=== PATIENT | female | born 1990 | race Caucasian/White ===

== ENCOUNTER 2016-08-30 23:48 | Emergency (ER) | payer MEDICAID ==
[~2016-08-30] VITALS: Ht 165.1 cm; Wt 127.0 kg
[~2016-08-30 23:48] MED LIST: NO MED
[2016-08-30 23:49] VITALS: BP 148/88
--- NOTE | 2016-08-30 23:59 | NUR ---
PT TAKEN TO BED 8
--- NOTE | 2016-08-31 00:05 | NUR ---
26Y/F PATIENT PRESENTS TO ED WITH C/O FLU LIKE SYMPTOM X 1 WK . PT STATES STARTED COUGHING 1 WK AGO, FEVER, SORE THROAT, ERAS PAIN AND HEADACHE. DENIES N/V/D; SKIN IS PINK/WARM/DRY; AAOX4 WITH EVEN AND STEADY GAIT; LUNGS CLEAR BL; HR EVEN AND REGULAR; PT DENIES ANY FEVER, CP, SOB, OR COUGH AT THIS TIME; PATIENT STATES PAIN OF 8/10 AT THIS TIME; VSS; PATIENT POSITIONED FOR COMFORT; HOB ELEVATED; BEDRAILS UP X2; BED DOWN. ER MD MADE AWARE OF PT STATUS.
--- NOTE | 2016-08-31 00:51 | NUR ---
Dr. Henderson evaluating patient at bedside.
--- NOTE | 2016-08-31 01:34 | NUR ---
Patient discharged with v/s stable. Written and verbal after care instructions given and explained. Patient alert, oriented and verbalized understanding of instructions. Ambulatory with steady gait. All questions addressed prior to discharge. ID band removed. Patient advised to follow up with PMD. Rx of GENTEX LA 650MG-23.75 MG EXTENDED-RELEASE, CODEINE/PROMETHAZINE 10MG-5.25/5ML given. Patient educated on indication of medication including possible reaction and side effects. Opportunity to ask questions provided and answered.
[2016-08-31 01:35] VITALS: BP 140/85
== END 2016-08-31 01:34 | disposition home or self-care (01) ==
LOC: MED 23:48
DX: J06.9 Acute upper respiratory infection, unspecified (principal); I10 Essential (primary) hypertension

== ENCOUNTER 2016-11-12 13:08 | Emergency (ER) | payer MEDICAID, OTHER ==
[~2016-11-12] VITALS: Ht 167.6 cm; Wt 136.1 kg
[2016-11-12 13:51] VITALS: BP 146/98
--- NOTE | 2016-11-12 18:38 | NUR ---
PT AMBULATED TO BED 5.
--- NOTE | 2016-11-12 18:40 | NUR ---
26F BIB SELF C/O HEADACHE X 5 DAYS; PT DENIES TRAUMA OR INJURY TO HEAD; DENIES LOC, BLURRY VISION, OR VISION CHANGES AT THIS TIME; PT C/O PRESSURE "ALL OVER" HEAD, NON-RADIATING, 9/10 X 5 DAYS; PT SEEN BY [facility]RGENT [facility] TODAY, TXED FOR UTI, BUT INSTRUCTED TO COME TO ER FOR HEADACHE. A&OX4, PERRL, BL LUNG SOUNDS CLEAR, RR EVEN/UNLABORED, SKIN IS WARM/DRY/INTACT AT THIS TIME; PT C/O NAUSEA X 5 DAYS, BUT DENIES VOMITING/DIARRHEA AT THIS TIME; ABDOMEN SOFT, ROUND, NON-TENDER, ACTIVE BOWEL SOUNDS X 4 QUADRANTS; STEADY GAIT; PT RESTING IN BED W/ HOB ELEVATED AND IN LOWEST POSITION; POSITIONED FOR COMFORT; ER MD MADE AWARE OF STATUS. WILL CONTINUE TO MONITOR.
--- NOTE | 2016-11-12 18:48 | NUR ---
ER MD DR. MACKENZIE EVALUATING PT AT BEDSIDE.
[2016-11-12] MEDS ORDERED: NACL 0.9% 1,000 ML IV ONE (18:55)
[2016-11-12] MEDS ORDERED: METOCLOPRAMIDE 10 MG/2 ML INJ VIAL IVP ONE (18:55)
--- NOTE | 2016-11-12 19:18 | NUR ---
Pt report given to TAYLOR PURI. Transfer of care at this time.
--- NOTE | 2016-11-12 19:50 | NUR ---
PT TAKEN TO CT
--- NOTE | 2016-11-12 20:01 | NUR ---
PT RETURN FROM CT
--- NOTE | 2016-11-12 20:40 | NUR ---
Dr. Rutledge evaluating patient at bedside.
--- NOTE | 2016-11-12 20:44 | NUR ---
Patient appears to be resting comfortably in bed. Vital Signs within normal limits. Respirations even and unlabored. FAMILY AT BEDSIDE AT THIS TIME
[2016-11-12 20:58] VITALS: BP 130/78
--- NOTE | 2016-11-12 20:59 | NUR ---
IV removed, catheter intact and site benign. Applied folded 4x4 gauze and tape to stop bleeding. Patient discharged with v/s stable. Written and verbal after care instructions given and explained. Patient alert, oriented and verbalized understanding of instructions. Ambulatory with steady gait. All questions addressed prior to discharge. ID band removed. Patient advised to follow up with PMD. Rx of TYLENOL WITH CODEINE AND PEPCID given. Patient educated on indication of medication including possible reaction and side effects. Opportunity to ask questions provided and answered. FAMILY AT BEDSIDE AT THIS TIME
== END 2016-11-12 20:59 | disposition home or self-care (01) ==
LOC: MED 13:08
DX: R51 Headache (principal); R10.9 Unspecified abdominal pain; I10 Essential (primary) hypertension
CPT/HCPCS: 36415; 70450; 80053; 81001; 81025; 83605; 85025; 96361; 96374; 99285; J2765; J7030

== ENCOUNTER 2016-11-13 19:17 | Emergency (ER) | payer OTHER ==
[~2016-11-13] VITALS: Ht 165.1 cm; Wt 136.1 kg
[2016-11-13 19:34] VITALS: BP 160/96
--- NOTE | 2016-11-13 22:41 | NUR ---
PT TAKEN TO BED 4
--- NOTE | 2016-11-13 22:51 | NUR ---
PT PRESENTS TO ED WITH C/O HEADACHE SINCE LAST SATURDAY. STATED SHE CAME HERE YESTERDAY WITH SAME COMPLAINT, PAIN SCALE 10/10, PRESSURE. HX: HTN. BREATHING EVEN AND UNLABORED. ERMD AWARE
--- NOTE | 2016-11-13 22:54 | NUR ---
Dr. Wray evaluating patient at bedside.
--- NOTE | 2016-11-13 22:56 | NUR ---
Sharan naidu in ED - 11/14/16 at [address] MACKENZIE AT BEDSIDE EVALUATING PT.
[2016-11-13] MEDS ORDERED: METOCLOPRAMIDE 10 MG/2 ML INJ VIAL IVP ONE (23:00)
[2016-11-13 23:28] LABS: HEMOGLOBIN 13.1 g/dL (12.0-16.0); MEAN CORPUSCULAR HEMOGLOBIN 29 pg (27-31); MEAN CORPUSCULAR HGB CONC 33 g/dL (33-37); MEAN CORPUSCULAR VOLUME 86 fL (80-94); PLATELET COUNT (AUTO) 260 K/uL (140-450); RED BLOOD CELL COUNT(AUTO) 4.54 MIL/uL (4.20-5.40); RED CELL DISTRIBUTION WIDTH 14.1 % (11.6-13.7); WHITE BLOOD COUNT (AUTO) 6.8 K/uL (4.8-10.8)
[2016-11-13 23:47] LABS: APPEARANCE,URINE CLEAR (CLEAR); BILIRUBIN,URINE NEGATIVE (NEGATIVE); BLOOD, URINE 2+ (NEGATIVE); COLOR,URINE YELLOW (YELLOW); LEUKOCYTE ESTERASE ,URINE TRACE (NEGATIVE); NITRITE, URINE NEGATIVE (NEGATIVE); PH,URINE 5.5 (5.0-9.0); PROTEIN,URINE NEGATIVE (NEGATIVE); UGLUCOSE NEGATIVE (NEGATIVE); UROBILINOGEN,URINE 0.2 EU/dL (0.2 - 1)
[2016-11-13 23:49] LABS: ALBUMIN 3.4 g/dL (3.4-5.0); ANION GAP 11.4 (8-16); CALCIUM 8.3 mg/dL (8.5-10.1); CARBON DIOXIDE 28.9 mmol/L (21-32); CREATININE 0.9 mg/dL (0.6-1.3); POTASSIUM 3.3 mmol/L (3.5-5.1); TOTAL BILIRUBIN 0.4 mg/dL (0.0-1.0); TOTAL PROTEIN, SERUM 7.1 g/dL (6.4-8.2)
[2016-11-13 23:56] LABS: NEUTROPHILS % (MANUAL) 13 (43-65)
[2016-11-13 23:57] LABS: BAND % (MANUAL) 14 % (0-8); LYMPHOCYTES % (MANUAL) 68 % (20-46); MONOCYTES % (MANUAL) 5 % (5-12)
[2016-11-14 00:22] LABS: BACTERIA,URINE FEW /HPF (None Seen); MUCUS,URINE 3+ /LPF (None Seen); RBC,URINE 0-5 (RARE) /HPF (0-5); SQUAMOUS EPITHELIAL CELL,UR 0-3 (FEW) /LPF (0-3 (FEW)); WBC,URINE 0-5 (RARE) /HPF (0-5)
--- NOTE | 2016-11-14 01:30 | NUR ---
DR. MACKENZIE AT BEDSIDE REEVALUATING PT
[2016-11-14] MEDS ORDERED: KETOROLAC 30 MG/ML VIAL IM ONE (01:35)
--- NOTE | 2016-11-14 02:10 | NUR ---
IV removed, catheter intact and site benign. Applied folded 4x4 gauze and tape to stop bleeding.
[2016-11-14 02:17] VITALS: BP 134/83
--- NOTE | 2016-11-14 02:17 | NUR ---
Patient discharged with v/s stable. Written and verbal after care instructions given and explained. Patient alert, oriented and verbalized understanding of instructions. Ambulatory with steady gait. All questions addressed prior to discharge. ID band removed. Patient advised to follow up with PMD. Rx of MACRODANTIN 100MG CAPSULE 1 CAP, 2 TIMES A DAY BY MOUTH, SUMATRIPTAN SUCCINATE 50MG TABLET 1 TAB ORALLY AT ONSET OF HEADACHE IF NO RELIEF AFTER 2 HOURS THE DOSE MAY BE REPEATED ONE TIME given. Patient educated on indication of medication including possible reaction and side effects. Opportunity to ask questions provided and answered.
== END 2016-11-14 02:17 | disposition home or self-care (01) ==
LOC: MED 19:17
DX: G43.909 Migraine, unspecified, not intractable, without status migrainosus (principal); N39.0 Urinary tract infection, site not specified; I10 Essential (primary) hypertension
CPT/HCPCS: 36415; 80053; 81001; 81025; 85025; 96372; 96374; 99284; J1885; J2765

== ENCOUNTER 2016-11-14 23:38 | Emergency (ER) | payer MEDICAID, OTHER ==
[~2016-11-14] VITALS: Ht 162.6 cm; Wt 136.1 kg
[2016-11-14 23:43] VITALS: BP 148/90
--- NOTE | 2016-11-15 02:45 | NUR ---
PATIENT LEFT WITHOUT BEING SEEN BY DR. Liu. NO FURTHER CARE PROVIDED FOR PATIENT.
== END 2016-11-15 02:45 | disposition left against medical advice (07) ==
LOC: MED 23:38
DX: R07.89 Other chest pain (principal); Z53.21 Procedure and treatment not carried out due to patient leaving prior to being seen by health care provider

== ENCOUNTER 2017-07-10 08:57 | Emergency (ER) | payer MEDICAID, OTHER ==
[~2017-07-10] VITALS: Ht 162.6 cm; Wt 137.4 kg
--- NOTE | 2017-07-10 09:08 | NUR ---
patient to er bed 1
[2017-07-10 09:09] VITALS: BP 162/114
--- NOTE | 2017-07-10 09:12 | NUR ---
PT PRESENTS TO ER FOR EVALUATION OF BACK PAIN EXTENDING FROM NECK TO LOW BACK AND RADIATING TO RIGHT SIDE OF BODY X10 DAYS. HX HTN. DENIES N/V/D; SKIN IS PINK/WARM/DRY; AAOX4 WITH EVEN AND STEADY GAIT; LUNGS CLEAR BL; HR EVEN AND REGULAR; PT DENIES ANY FEVER, CP, SOB, OR COUGH AT THIS TIME; PATIENT STATES PAIN OF 9/10 AT THIS TIME; VSS; PATIENT POSITIONED FOR COMFORT; HOB ELEVATED; BEDRAILS UP X2; BED DOWN. ER MD MADE AWARE OF PT STATUS.
--- NOTE | 2017-07-10 09:17 | NUR ---
DR LICEA EVALUATING AAO PT AT BEDSIDE
[2017-07-10] MEDS ORDERED: LIDOCAINE 1% ***ER ONLY *** 10 MG/ML VIAL INJ ONE (09:25)
[2017-07-10 10:43] VITALS: BP 148/91
== END 2017-07-10 10:43 | disposition home or self-care (01) ==
LOC: MED 08:57
DX: M62.830 Muscle spasm of back (principal); M25.511 Pain in right shoulder; G89.29 Other chronic pain; I10 Essential (primary) hypertension; Z87.891 Personal history of nicotine dependence
CPT/HCPCS: 20552; 99284; J2001

== ENCOUNTER 2017-10-18 13:30 | Emergency (ER) | payer OTHER ==
[~2017-10-18] VITALS: Ht 165.1 cm; Wt 102.1 kg
--- NOTE | 2017-10-18 13:39 | NUR ---
Patient BIBA to bed 4.
[2017-10-18 13:42] VITALS: BP 195/108
--- NOTE | 2017-10-18 14:00 | NUR ---
PATIENT BIB [facility] WITH C/O WEAK/DIZZY AT WORK TODAY. BS FIELD 137. BP FIELD 190/120. DID NOT TAKE BP MEDS X2 DAYS. CANT RECALL NAME BP MEDS. HX: HTN .AAOX4 WITH EVEN AND STEADY GAIT; LUNGS CLEAR BL; HR EVEN AND REGULAR; ELEVATED BP NOTED, PT DENIES ANY FEVER, CP, SOB, OR COUGH AT THIS TIME; DENIES N/V/D; SKIN IS PINK/WARM/DRY; PATIENT STATES HEADACHE 8/10 AT THIS TIME; VSS; PATIENT POSITIONED FOR COMFORT; HOB ELEVATED; BEDRAILS UP X2; BED DOWN. ER MD MADE AWARE OF PT STATUS.
[2017-10-18 14:19] LABS: BILIRUBIN,URINE NEGATIVE (NEGATIVE); BLOOD, URINE TRACE-I (NEGATIVE); LEUKOCYTE ESTERASE ,URINE NEGATIVE (NEGATIVE); NITRITE, URINE NEGATIVE (NEGATIVE); PH,URINE 5.5 (5.0-9.0); UGLUCOSE NEGATIVE (NEGATIVE)
[2017-10-18 14:20] LABS: APPEARANCE,URINE CLEAR (CLEAR); COLOR,URINE STRAW (YELLOW)
[2017-10-18 14:28] LABS: RBC,URINE 0-5 (RARE) /HPF (0-5); WBC,URINE 0-5 (RARE) /HPF (0-5)
[2017-10-18 14:30] LABS: BASOPHILS # (AUTO) 0.1 K/uL (0.00-0.22); BASOPHILS % (AUTO) 1.2 % (0.0-2.0); EOSINOPHILS # (AUTO) 0.1 K/uL (0-0.4); EOSINOPHILS % (AUTO) 0.7 % (0.0-4.0); HEMATOCRIT 39.7 % (36-48); HEMOGLOBIN 13.3 g/dL (12.0-16.0); LYMPHOCYTES # (AUTO) 3.4 K/uL (2.5-16.5); LYMPHOCYTES % (AUTO) 34.4 % (20.5-51.1); MEAN CORPUSCULAR HEMOGLOBIN 29 pg (27-31); MEAN CORPUSCULAR HGB CONC 33 g/dL (33-37); MEAN CORPUSCULAR VOLUME 87.9 fL (80-94); MONOCYTES # (AUTO) 0.5 K/uL (0.8-1.0); MONOCYTES % (AUTO) 5.6 % (1.7-9.3); NEUTROPHILS # (AUTO) 5.7 K/uL (1.8-7.7); NEUTROPHILS % (AUTO) 58.1 % (42.2-75.2); PLATELET COUNT (AUTO) 380 K/uL (140-450); RED BLOOD CELL COUNT(AUTO) 4.52 MIL/uL (4.20-5.40); RED CELL DISTRIBUTION WIDTH 12.9 % (11.6-13.7); WHITE BLOOD COUNT (AUTO) 9.8 K/uL (4.8-10.8)
[2017-10-18 15:01] LABS: PROTHROMBIN TIME 10.4 secs (10.8-13.4)
[2017-10-18 15:19] LABS: ALBUMIN 3.8 g/dL (3.4-5.0); ANION GAP 13.8 (8-16); CARBON DIOXIDE 25.8 mmol/L (21-32); CREATININE 0.8 mg/dL (0.6-1.3); POTASSIUM 3.6 mmol/L (3.5-5.1); TOTAL BILIRUBIN 0.2 mg/dL (0.0-1.0)
[2017-10-18 16:37] VITALS: BP 145/94
--- NOTE | 2017-10-18 16:37 | NUR ---
Patient discharged with v/s stable. Written and verbal after care instructions given and explained. Patient alert, oriented and verbalized understanding of instructions. Ambulatory with steady gait. All questions addressed prior to discharge. ID band removed. Patient advised to follow up with PMD. Rx of HCTZ given. Patient educated on indication of medication including possible reaction and side effects. Opportunity to ask questions provided and answered.
[2017-10-19] MEDS ORDERED: HYDROCHLOROTHIAZIDE 25 MG TAB PO SCH (09:00)
== END 2017-10-18 16:37 | disposition home or self-care (01) ==
LOC: MED 13:30
DX: R51 Headache (principal); R42 Dizziness and giddiness; I10 Essential (primary) hypertension; F17.200 Nicotine dependence, unspecified, uncomplicated
CPT/HCPCS: 36415; 70450; 80053; 81001; 81025; 83605; 84484; 85025; 85610; 87040; 93005; 99285; J7030

== ENCOUNTER 2020-02-16 21:50 | Emergency (ER) | payer OTHER ==
[~2020-02-16] VITALS: Ht 165.1 cm; Wt 138.3 kg
[2020-02-16 22:09] VITALS: BP 142/92
--- NOTE | 2020-02-16 22:09 | NUR ---
PT TO A/W IN TENT FOR EVALUATION. PT WEARING MASK.
--- NOTE | 2020-02-16 22:53 | NUR ---
PT TAKEN TO BED 5
--- NOTE | 2020-02-16 22:59 | NUR ---
30 YO F BIB SELF FOR C/C OF SINUS PRESSURE IN FACE AND NOSE X1 WEEK. PT STATES SHE WAS HAVING CLEAR MUCOUS RHINORRHEA EARLIER IN THE WEEK BUT NOW NOTHING COMES OUT WHEN SHE TRIES TO BLOW HER NOSE. PT STATES SHE HAS TAKEN OTC COUGH/MUCOUS DECONGESTION AND NASAL SPRAYS WITHOUT RELIEF OF SYMPTIMS. PT DENIES LIU, FEVER, COUGH, CHILLS, SOB, N/V/D, TRAVEL. BED LOCKED AND IN LOWEST POSITION. SIDE RAILS X1. MED HX: DM2, HTN RX: LISINOPRIL, HYDROCHLOROTHIAZIDE, METFORMIN NKA
--- NOTE | 2020-02-16 23:04 | NUR ---
Dr. Jay examining patient.
[2020-02-16 23:15] VITALS: BP 142/92
--- NOTE | 2020-02-16 23:15 | NUR ---
Patient discharged with v/s stable. Written and verbal after care instructions given and explained. Patient alert, oriented and verbalized understanding of instructions. Ambulatory with steady gait. All questions addressed prior to discharge. ID band removed. Patient advised to follow up with PMD. Rx of SUDAFED given. Patient educated on indication of medication including possible reaction and side effects. Opportunity to ask questions provided and answered.
== END 2020-02-16 23:15 | disposition home or self-care (01) ==
LOC: MED 21:50
DX: R09.81 Nasal congestion (principal); E11.9 Type 2 diabetes mellitus without complications; I10 Essential (primary) hypertension; F17.210 Nicotine dependence, cigarettes, uncomplicated; Z98.890 Other specified postprocedural states
CPT/HCPCS: 99282

== ENCOUNTER 2022-10-22 12:08 | Emergency (ER) | payer OTHER ==
[~2022-10-22] VITALS: Ht 165.1 cm; Wt 137.0 kg
[2022-10-22 12:54] VITALS: BP 169/115
[2022-10-22] MEDS ORDERED: DEXAMETHASONE 10 MG/ML VIAL IM ONE ×2 (13:25→14:35)
[2022-10-22] MEDS ORDERED: LIDO15SO PO (13:30)
[2022-10-22] MEDS ORDERED: PENI500T20 PO (13:30)
[2022-10-22] MEDS ORDERED: IBUP-2213 PO (13:30)
[2022-10-22 13:57] VITALS: BP 132/70
[2022-10-22] MEDS ORDERED: DEXAMETHASONE 10 MG/ML VIAL ONE (14:37)
== END 2022-10-22 13:58 | disposition home or self-care (01) ==
LOC: MED 12:08
DX: J02.0 Streptococcal pharyngitis (principal); Z20.822 Contact with and (suspected) exposure to COVID-19; E11.9 Type 2 diabetes mellitus without complications; I10 Essential (primary) hypertension; Z79.4 Long term (current) use of insulin; Z79.899 Other long term (current) drug therapy
CPT/HCPCS: 87081; 87426; 87804; 99283; J1100

== ENCOUNTER 2022-10-25 18:37 | Emergency (ER) | payer OTHER ==
[~2022-10-25] VITALS: Ht 165.1 cm; Wt 140.6 kg
[~2022-10-25 18:37] MED LIST changes: +IBUP-2213 PO; +LIDO15SO PO; -NO MED; +PENI500T20 PO
[2022-10-25 19:06] VITALS: BP 167/105
--- NOTE | 2022-10-25 19:38 | NUR ---
SEEN AND EXAMINED BY AIXA ROCHA.
[2022-10-25] MEDS ORDERED: AMOX1TAB8 PO (19:44)
[2022-10-25] MEDS ORDERED: IBUP-2213 PO (19:44)
[2022-10-25] MEDS ORDERED: OFLO5SOL27 RIGHT EAR (19:44)
[2022-10-25 20:30] VITALS: BP 122/79
--- NOTE | 2022-10-25 20:30 | NUR ---
Patient discharged with v/s stable. Written and verbal after care instructions given and explained. Patient alert, oriented and verbalized understanding of instructions. Ambulatory with steady gait. All questions addressed prior to discharge. ID band removed. Patient advised to follow up with PMD. Rx of AMOXICILLIN, FLOXIN OT given. Patient educated on indication of medication including possible reaction and side effects. Opportunity to ask questions provided and answered.
== END 2022-10-25 20:30 | disposition home or self-care (01) ==
LOC: MED 18:37
DX: H66.91 Otitis media, unspecified, right ear (principal); E11.9 Type 2 diabetes mellitus without complications; I10 Essential (primary) hypertension; Z79.4 Long term (current) use of insulin; Z79.899 Other long term (current) drug therapy
CPT/HCPCS: 99283

== ENCOUNTER 2022-11-14 17:21 | Emergency (ER) | payer OTHER ==
[~2022-11-14] VITALS: Ht 165.1 cm; Wt 140.6 kg
[~2022-11-14 17:21] MED LIST changes: +AMOX1TAB8 PO; -LIDO15SO PO; +LIDO15SO4 PO; +OFLO5SOL27 RIGHT EAR
[2022-11-14 17:37] VITALS: BP 160/106
--- NOTE | 2022-11-14 17:42 | NUR ---
SENT TO [facility]
[2022-11-14 18:50] LABS: BASOPHILS # (AUTO) 0.1 K/uL (0.00-0.22); BASOPHILS % (AUTO) 0.8 % (0.0-2.0); EOSINOPHILS # (AUTO) 0.1 K/uL (0-0.4); EOSINOPHILS % (AUTO) 1.4 % (0.0-4.0); HEMATOCRIT 35.9 % (36-48); HEMOGLOBIN 12.3 g/dL (12.0-16.0); LYMPHOCYTES % (AUTO) 35.8 % (20.5-51.1); MEAN CORPUSCULAR HEMOGLOBIN 29 pg (27-31); MEAN CORPUSCULAR HGB CONC 34 g/dL (33-37); MEAN CORPUSCULAR VOLUME 85.3 fL (80-94); MONOCYTES # (AUTO) 0.6 K/uL (0.8-1.0); MONOCYTES % (AUTO) 7.1 % (1.7-9.3); NEUTROPHILS # (AUTO) 4.5 K/uL (1.8-7.7); NEUTROPHILS % (AUTO) 54.9 % (42.2-75.2); PLATELET COUNT (AUTO) 372 K/uL (140-450); RED BLOOD CELL COUNT(AUTO) 4.21 MIL/uL (4.20-5.40); WHITE BLOOD COUNT (AUTO) 8.3 K/uL (4.8-10.8)
[2022-11-14 19:06] LABS: ALBUMIN 3.6 g/dL (3.4-5.0); ANION GAP 11.3 (8-16); CREATININE 0.9 mg/dL (0.6-1.3); POTASSIUM 3.3 mmol/L (3.5-5.1); TOTAL BILIRUBIN 0.2 mg/dL (0.0-1.0)
[2022-11-14] MEDS ORDERED: FAMO-90 PO (20:02)
[2022-11-14] MEDS ORDERED: ONDA-188 PO (20:02)
--- NOTE | 2022-11-14 20:35 | NUR ---
Patient discharged with v/s stable. Written and verbal after care instructions given and explained. Patient alert, oriented and verbalized understanding of instructions. All questions addressed prior to discharge. ID band removed. Patient advised to follow up with PMD. Rx of Famotidine and Zofran sent to preferred pharmacu. Patient educated on indication of medication including possible reaction and side effects. Opportunity to ask questions provided and answered.
[2022-11-14 20:51] VITALS: BP 154/93
== END 2022-11-14 20:35 | disposition home or self-care (01) ==
LOC: MED 17:21
DX: K76.0 Fatty (change of) liver, not elsewhere classified (principal); E11.9 Type 2 diabetes mellitus without complications; I10 Essential (primary) hypertension; F17.210 Nicotine dependence, cigarettes, uncomplicated; Z71.6 Tobacco abuse counseling; Z98.890 Other specified postprocedural states; Z79.899 Other long term (current) drug therapy; Z79.1 Long term (current) use of non-steroidal anti-inflammatories (NSAID); Z79.2 Long term (current) use of antibiotics
CPT/HCPCS: 36415; 76705; 80053; 83690; 85025; 99284; Q0092

== ENCOUNTER 2023-04-01 20:02 | Emergency (ER) | payer OTHER ==
[~2023-04-01] VITALS: Ht 165.1 cm; Wt 132.9 kg
[~2023-04-01 20:02] MED LIST changes: +FAMO-90 PO; +ONDA-188 PO
[2023-04-01 20:10] VITALS: BP 150/90; PULSE 74; RESP 17; TEMP 98; O2SAT 99
[2023-04-01] MEDS ORDERED: predniSONE 20 MG TAB PO ONE (21:45)
[2023-04-01] MEDS ORDERED: CYCLOBENZAPRINE 10 MG TAB PO ONE (21:45)
[2023-04-01] MEDS ORDERED: HYDROcodone/APAP 5/325 MG 1 TAB TAB PO ONE (21:45)
[2023-04-01] MEDS ORDERED: KETOROLAC 30 MG/ML VIAL IM ONE (21:45)
[2023-04-01] MEDS ORDERED: NAPR-1704 PO (22:08)
[2023-04-01] MEDS ORDERED: CYCL-711 PO (22:08)
[2023-04-01] MEDS ORDERED: PRED20TA5 PO (22:08)
[2023-04-01] MEDS ORDERED: LID5T TP (22:08)
[2023-04-01] MEDS ORDERED: ACET-8905 PO (22:10)
[2023-04-01 22:20] VITALS: O2SAT 99
== END 2023-04-01 22:22 | disposition home or self-care (01) ==
LOC: MED 20:02
DX: M54.41 Lumbago with sciatica, right side (principal); E11.9 Type 2 diabetes mellitus without complications; I10 Essential (primary) hypertension; Z79.899 Other long term (current) drug therapy
CPT/HCPCS: 96372; 99284; J1885; J7512

== ENCOUNTER 2023-08-04 13:04 | Emergency (ER) | payer OTHER ==
[~2023-08-04] VITALS: Ht 165.1 cm; Wt 130.6 kg
[~2023-08-04 13:04] MED LIST changes: +ACET-8905 PO; +CYCL-711 PO; +LID5T TP; +NAPR-1704 PO; +PRED20TA5 PO
[2023-08-04 13:13] VITALS: BP 162/94; PULSE 71; RESP 20; TEMP 97.2; O2SAT 99
[2023-08-04] MEDS ORDERED: KETOROLAC 30 MG/ML VIAL ONE (13:37)
[2023-08-04] MEDS ORDERED: KETOROLAC 30 MG/ML VIAL IM ONE (13:40)
[2023-08-04 14:12] LABS: FLU A ANTIGEN negative (NEGATIVE); FLU B ANTIGEN NEGATIVE (NEGATIVE)
[2023-08-04] MEDS ORDERED: PENI-321 PO (14:27)
[2023-08-04] MEDS ORDERED: IBUP-2213 PO (14:27)
[2023-08-04 14:33] VITALS: BP 162/94; PULSE 71; RESP 20; TEMP 97.2; O2SAT 99
== END 2023-08-04 14:33 | disposition home or self-care (01) ==
LOC: MED 13:04
DX: J02.8 Acute pharyngitis due to other specified organisms (principal); Z20.822 Contact with and (suspected) exposure to COVID-19; B96.89 Other specified bacterial agents as the cause of diseases classified elsewhere; E11.9 Type 2 diabetes mellitus without complications; I10 Essential (primary) hypertension; Z79.4 Long term (current) use of insulin; Z79.899 Other long term (current) drug therapy
CPT/HCPCS: 81025; 87081; 87426; 87804; 96372; 99283; J1885

== ENCOUNTER 2023-12-03 11:07 | Emergency (ER) | payer OTHER ==
[~2023-12-03] VITALS: Ht 165.1 cm; Wt 130.2 kg
[~2023-12-03 11:07] MED LIST changes: +LIDO15SO10 PO; -LIDO15SO4 PO; +PENI-321 PO
[2023-12-03 11:23] VITALS: BP 156/93; PULSE 74; RESP 18; TEMP 98; O2SAT 98
[2023-12-03 14:42] LABS: FLU A ANTIGEN negative (NEGATIVE); FLU B ANTIGEN negative (NEGATIVE)
[2023-12-03] MEDS ORDERED: IBUP-2213 PO (14:46)
[2023-12-03] MEDS ORDERED: ONDA-188 SL (14:46)
[2023-12-03] MEDS ORDERED: GUAI237L61 PO (14:46)
[2023-12-03] MEDS ORDERED: TAM75 PO (15:02)
[2023-12-03 15:22] VITALS: BP 134/64; PULSE 79; RESP 20; TEMP 98.3; O2SAT 94
== END 2023-12-03 15:00 | disposition home or self-care (01) ==
LOC: MED 11:07
DX: J06.9 Acute upper respiratory infection, unspecified (principal); Z20.822 Contact with and (suspected) exposure to COVID-19; E11.9 Type 2 diabetes mellitus without complications; I10 Essential (primary) hypertension; Z79.1 Long term (current) use of non-steroidal anti-inflammatories (NSAID); Z79.2 Long term (current) use of antibiotics; Z79.899 Other long term (current) drug therapy
CPT/HCPCS: 71045; 99284

== ENCOUNTER 2023-12-05 18:23 | Emergency (ER) | payer OTHER ==
[~2023-12-05] VITALS: Ht 165.1 cm; Wt 129.3 kg
[~2023-12-05 18:23] MED LIST changes: +GUAI237L61 PO; +ONDA-188 SL; +TAM75 PO
[2023-12-05 18:29] VITALS: BP 186/118; PULSE 73; RESP 19; TEMP 98.9; O2SAT 99
[2023-12-05] MEDS ORDERED: KETOROLAC 30 MG/ML VIAL IVP ONE (18:50)
[2023-12-05] MEDS ORDERED: NACL 0.9% 1,000 ML IV ONE (18:50)
[2023-12-05] MEDS: KETOROLAC 60 MG/2 ML VIAL IM ONE (19:50)
[2023-12-05] MEDS ORDERED: DEXT1TAB46 PO (19:55)
[2023-12-05] MEDS ORDERED: PRED20TA5 PO (19:55)
[2023-12-05 20:00] VITALS: BP 195/87; PULSE 70; RESP 11; O2SAT 100
== END 2023-12-05 20:00 | disposition home or self-care (01) ==
LOC: MED 18:23
DX: J06.9 Acute upper respiratory infection, unspecified (principal); E11.9 Type 2 diabetes mellitus without complications; I10 Essential (primary) hypertension; Z79.1 Long term (current) use of non-steroidal anti-inflammatories (NSAID); Z79.2 Long term (current) use of antibiotics; Z79.899 Other long term (current) drug therapy
CPT/HCPCS: 96372; 99283; J1885